=== PATIENT | male | born 1985 | race Caucasian/White ===

== ENCOUNTER 2020-03-31 09:07 | Emergency (ER) | payer OTHER ==
[2020-03-31 09:33] VITALS: BP 152/100
--- NOTE | 2020-03-31 12:00 | ER Document Report ---
HPI - HPI Time Seen by Provider: 03/31/20 10:14 Pain Level: 2 Context: Patient is a 34-year-old male who presents the emergency department with a chief complaint of a sore throat. Patient states that his sore throat started yesterday. He has slight shortness of breath that started yesterday. Patient is an everyday smoker. Patient states that he would like to be tested for COVID-19. - CONSTITUTIONAL Constitutional: DENIES: Fever, Chills - EENT EENT: REPORTS: Sore Throat. DENIES: Ear Pain, Eye problems - NEURO Neurology: DENIES: Headache, Weakness, Vision blurred, Dizzinesss / Vertigo - CARDIOVASCULAR Cardiovascular: DENIES: Chest pain - RESPIRATORY Respiratory: REPORTS: Trouble Breathing. DENIES: Coughing - GASTROINTESTINAL Gastrointestinal: DENIES: Abdominal Pain, Black / Bloody Stools - URINARY Urinary: DENIES: Dysuria, Urgency, Frequency - REPRODUCTIVE Reproductive: DENIES: : - MUSCULOSKELETAL Musculoskeletal: DENIES: Extremity pain Past Medical History - Social History Smoking Status: Current Every Day Smoker Chew tobacco use (# tins/day): No Family History: Reviewed & Not Pertinent Patient has homicidal ideation: No Psychiatric Medical History: Reports: Hx Bipolar Disorder Past Surgical History: Reports: Hx Orthopedic Surgery - r hand 2009 Vertical Provider Document - CONSTITUTIONAL Agree With Documented VS: Yes Exam Limitations: No Limitations General Appearance: No Apparent Distress - HEENT HEENT: Atraumatic, Normocephalic, PERRLA, Pharyngeal Erythema. negative: Pharyngeal Exudate, Pharyngeal Tenderness, Tympanic Membrane Red, Tympanic Membrane Bulging - NECK Neck: Normal Inspection - RESPIRATORY Respiratory: Breath Sounds Normal, No Respiratory Distress - CARDIOVASCULAR Cardiovascular: Regular Rate, Regular Rhythm Pulses: Normal: Radial - MUSCULOSKELETAL/EXTREMETIES Musculoskeletal/Extremeties: FROM - NEURO Level of Consciousness: Awake, Alert, Appropriate Motor/Sensory: No Motor Deficit, No Sensory Deficit - DERM Integumentary: Warm, Dry, No Rash Course - Re-evaluation Re-evalutation: 03/31/20 11:58 Rapid strep test was negative. Culture will be sent. No evidence of a peritonsillar abscess. Uvula is midline. No respiratory distress noted and I have a low suspicion for pneumonia. Patient will be tested for COVID-19. Follow-up precautions were given. Verbal discharge instructions were given to the patient. They verbalized understanding. They are stable for discharge. - Vital Signs Vital signs: Temp Pulse Resp BP Pulse Ox 97.6 F 98 20 152/100 H 97 03/31/20 09:32 03/31/20 09:32 03/31/20 09:32 03/31/20 09:33 03/31/20 09:32 Discharge - Discharge Clinical Impression: Sore throat, Suspected COVID-19 virus infection Condition: Stable Disposition: HOME, SELF-CARE Instructions: COVID-19 Guidance for Persons Under Investigation Additional Instructions: You were seen today in the emergency department for sore throat. Your strep test will be sent for culture. At this time it is negative. You can take Tylenol 1000 mg every 6 hours as needed for any fever. You were also tested for COVID-19. The health department will call you with your results. Please quarantine at home until your results come back. If your test are positive, please quarantine at home for 2 weeks. Referrals: [facility] [Primary Care Provider] - Follow up as needed
== END 2020-03-31 12:45 | disposition home or self-care (01) ==
LOC: ER 09:07
DX: J02.9 Acute pharyngitis, unspecified (principal); R06.02 Shortness of breath; Z20.828 Contact with and (suspected) exposure to other viral communicable diseases
CPT/HCPCS: 99283; 87070; 87880; 87635; C9803; 87077